=== PATIENT | male | born 2000 | race Caucasian/White ===

== ENCOUNTER 2020-09-29 08:24 | Emergency (ER) | payer MEDICAID ==
[~2020-09-29] VITALS: Ht 182.9 cm; Wt 77.1 kg
--- NOTE | 2020-09-29 08:24 | NUR ---
BIBA TO BED 11
--- NOTE | 2020-09-29 08:26 | NUR ---
DR ROBERT AT BEDSIDE EVALUATING PT
[2020-09-29 08:30] VITALS: BP 105/56
--- NOTE | 2020-09-29 08:31 | NUR ---
20 Y/O MALE BIBA ALS FOR PEROCET OVERDOSE. PER MEDIC, ON ARRIVAL, GCS 3 AND NONRESPONSIVE/ NOT BREATHING AND BEGAN BAGGING PT. THEY GAVE 2MG NARCAN NASAL THEN 4MG NARCAN IV AND PT IS NOW ALERT AND RESPONSIVE. NOW, GCS 15 A/O X4 WITH NO SIGNS OF DISTRESS. PT STATED HE SNORTED 2 PERCOCET PILLS AROUND 0730 THIS MORNING AND WAS DRINKING ALCOHOL LAST NIGHT. PT DENIES OTHER DRUG USE. PT DENIES PAIN/N/V/SOB. PT IN GOWN, LAYING IN BED WITH BED IN LOWEST POSITION, BRAKES LOCKED, X2 SIDERAILS UP FOR SAFETY. 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 PMH: DENIES NKDA NKA
--- NOTE | 2020-09-29 08:50 | NUR ---
[place] [facility] AT BEDSIDE
--- NOTE | 2020-09-29 10:30 | NUR ---
PT LAYING IN BED WITH EVEN AND UNLABORED RESPIRATIONS. BED IN LOWEST POSITION, BRAKES LOCKED, X2 SIDERAILS UP FOR SAFETY. 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 VSS. WILL CONTINUE TO MONITOR
[2020-09-29] MEDS ORDERED: NALO4SPR NS (13:01)
[2020-09-29 13:08] VITALS: BP 98/84
--- NOTE | 2020-09-29 13:09 | NUR ---
Patient discharged with v/s stable. Written and verbal after care instructions given and explained. Patient alert, oriented and verbalized understanding of instructions. Ambulatory with steady gait. All questions addressed prior to discharge. ID band removed. Patient advised to follow up with PMD. Rx of NALOXONE 4MG NASAL SPRAY PRN OD given. Patient educated on indication of medication including possible reaction and side effects. Opportunity to ask questions provided and answered.
== END 2020-09-29 13:09 | disposition home or self-care (01) ==
LOC: MED 08:24
DX: T40.2X1A Poisoning by other opioids, accidental (unintentional), initial encounter (principal); F15.10 Other stimulant abuse, uncomplicated; F10.129 Alcohol abuse with intoxication, unspecified; F17.210 Nicotine dependence, cigarettes, uncomplicated; Y90.9 Presence of alcohol in blood, level not specified
CPT/HCPCS: 93005; 99285